=== PATIENT | female | born 1975 | race Caucasian/White ===

== ENCOUNTER → 2018-01-11 13:01 | Outpatient (POV) | payer BC, SELFPAY | PROVIDERS: PCP Family Medicine; Visit Provider Physician Assistant | DX: Z00.00 Encounter for general adult medical examination without abnormal findings (principal) ==

== ENCOUNTER → 2018-10-13 08:31 | Outpatient (CLI) | payer OTHER, SELFPAY ==
--- NOTE | 2018-10-13 08:33 | MM_ITS ---
MM Dig screening mamm BI w/CAD CAD Screening COMPARISON: Digital mammograms with CAD 06/12/2016 and 08/26/2017 INDICATION: There is a history of breast cancer patient maternal grandmother diagnosed after menopause. TECHNIQUE: Standard CC and MLO images were obtained. R2 CAD reviewed. FINDINGS: Prominent diffuse heterogenic fibroglandular densities are seen throughout both breasts more prominent in the upper outer quadrants. This lessens the sensitivity of mammography. There is a mole marker right breast. There is no suspicious lesion and there are no suspicious microcalcifications. IMPRESSION: Stable exam with no suspicious lesion seen BI-RADS Category: 1 Negative RECOMMENDED FOLLOW-UP: 1YR - 1 YEAR FOLLOW-UP (A letter has been sent to the patient regarding results of the study.)
== END ==
PROVIDERS: PCP Family Medicine; Visit Provider Nurse Practitioner Obstetrics & Gynecology
DX: Z12.31 Encounter for screening mammogram for malignant neoplasm of breast (principal)
CPT/HCPCS: 77067

== ENCOUNTER → 2019-11-14 09:08 | Outpatient (CLI) | payer OTHER, SELFPAY ==
--- NOTE | 2019-11-14 09:17 | MM_ITS ---
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 R2 CAD reviewed. FINDINGS: Dense breast tissue upper outer quadrant both right and left breast again observed but there is some asymmetry here but again note the longstanding area of dense tissue upper outer quadrant left breast of most notable.. Mammography is of decreased sensitivity in areas of this denser breast tissue Right breast: No significant new areas of concern but similar heterogeneous oral asymmetric fibroglandular pattern. Areas of density seen today are similar to multiple previous studies. Left breast: The area of dense tissue towards upper-outer quadrant again noted and similar to previous studies. Although appeared more focal on CC view this dense breast tissue dissipates on the MLO view-and appears similar to multiple previous studies including those dating back to even 2009 film screen study -I would encouraged self-breast exam, as well as directed physical exam by provider to this area;-and if there should be any progressive fullness here at the upper-outer quadrant left breast, low threshold for pursuing ultrasound would be encouraged (as ultrasound a useful complement/augment to mammography in such areas of dense breast tissue.). . Bilateral follow-up 1 year recommended, and should be encouraged/emphasized IMPRESSION: No discrete new areas of significant concern.. Adequate stable mammogram Again note the longstanding stable areas of dense breast upper-outer quadrant bilaterally, most evident towards upper-outer quadrant of left breast again observed but. Mammography is decreased sensitivity in areas of dense breast tissue but given the longstanding overall stable appearing region here follow-up 1 year recommended -I would encouraged self-breast exam, as well as directed physical exam by provider to this area; and if there should be any progressive fullness, low threshold for performing ultrasound would be encouraged. Otherwise bilateral follow-up 1 year recommended-annual follow-up should be emphasized/encouraged . BI-RAD Category: 2 Benign Finding(s) FOLLOW-UP: 1YR 1 Year Follow-up Bilateral mammogram follow-up in not over 1 year. Consider bilateral breast ultrasound to augment mammography screening particularly at that subsequent visit (A letter has been sent to the patient regarding results of the study.) Dictated by: Zackery De Oliveira MD 11/25/2019 12:05 Electronically signed by Zackery De Oliveira MD in [place] 11/25/2019 12:05
== END ==
PROVIDERS: PCP Family Medicine; Visit Provider Nurse Practitioner Obstetrics & Gynecology
DX: Z12.31 Encounter for screening mammogram for malignant neoplasm of breast (principal)
CPT/HCPCS: 77067